=== PATIENT | male | born 1980 | race Two or more races ===

== ENCOUNTER 2018-12-13 06:38 | Emergency (ER) | payer BC ==
[~2018-12-13] VITALS: Ht 162.6 cm; Wt 70.3 kg
[2018-12-13] MEDS ORDERED: FAMOTIDINE 20 MG/2 ML VIAL IVP ONE (06:45)
[2018-12-13] MEDS ORDERED: LIDO:MAALOX 1:1 20 ML SINGLE DOSE. SWSW ONE (06:45)
--- NOTE | 2018-12-13 07:02 | PHYS DOC ---
Past Medical History Past Medical History: No Pertinent History Past Surgical History: No Surgical History Smoking: Cigarettes Alcohol Use: Occasionally Drug Use: None Adult General Chief Complaint Chief Complaint: ABDOMINAL PAIN HPI HPI 38-year-old male presenting the emergency department today with epigastric abdominal pain that has been present for approximately one year. Sharp shooting pain in the epigastrium that is worse when he eats. It started again this morning around 2 AM. It is nonradiating and not associated with vomiting fevers or chills. He denies yellowing of the skin or eyes. He denies chest pain or shortness of breath. Review of systems is negative for fevers chills nausea vomiting chest pain shortness of breath. All other review of systems is negative unless otherwise noted in history of present illness. ED course: 30-year-old male presenting the emergency department today with epigastric abdominal pain. On arrival is afebrile with a normal heart rate. On examination he has mild tenderness in the right upper quadrant. [id number] ultrasound performed which shows cholelithiasis. Gallbladder wall is within normal limits. I was unable to evaluate the common bile duct. On arrival the patient was given IV fluids a GI cocktail and Pepcid. formal Ultrasound shows gallstones without signs of cholecystitis. Blood work is unremarkable otherwise. Repeat abdominal exam continues to show a nontender appendix. He has mild pain in the gallbladder to palpation. We will discharge the patient today with oral pain medication to follow-up with Dr. Ayala for symptomatically cholelithiasis. The blue phone was used both on the initial examination and on reexamination with careful return precautions for developing cholecystitis such as fever or yellowing of the skin. The patient has been examined and was not found to have an emergency medical condition. The patient was then discharged home in stable condition. They were to return if their symptoms worsened or if they were concerned for any reason. They were also instructed to return to the emergency department if they were unable to get the recommended and appropriate follow-up. [id number] discharge instructions and return precautions were given. Patient's questions were answered to their satisfaction. Patient is comfortable with plan. Review of Systems Review of Systems SEE ABOVE. Current Medications Current Medications Current Medications Medications (Trade) Dose Ordered Sig/Daya Start Time Stop Time Status Last Admin Dose Admin Famotidine (Pepcid Vial) 20 mg 1X ONCE 12/13/18 06:45 12/13/18 06:55 DC 12/13/18 07:08 20 MG Multi-Ingredient Mouthwash/Gargle (Gi Cocktail) 20 ml 1X ONCE 12/13/18 06:45 12/13/18 06:55 DC 12/13/18 07:07 20 ML Sodium Chloride 1,000 ml @ 1,000 mls/hr 1X ONCE 12/13/18 07:15 12/13/18 08:14 DC 12/13/18 07:14 1,000 MLS/HR Allergies Allergies Allergies Coded Allergies Type Severity Reaction Last Updated Verified No Known Drug Allergies 12/13/18 No Physical Exam Physical Exam SEE ABOVE Constitutional: Well developed, well nourished, no acute distress, non-toxic appearance. [] HENT: Normocephalic, atraumatic, bilateral external ears normal, oropharynx moist, no oral exudates, nose normal. Eyes: PERRLA, EOMI, conjunctiva normal, no discharge. Neck: Normal range of motion, no tenderness, supple, no stridor. [] Cardiovascular:Heart rate regular rhythm, no murmur Lungs & Thorax: Bilateral breath sounds clear to auscultation [] Abdomen: Bowel sounds normal, soft, no tenderness, no masses, no pulsatile masses. [] Skin: Warm, dry, no erythema, no rash. [] Back: No tenderness, no CVA tenderness. [] Extremities: mild ttp in the ruq. nontender appendix. no cyanosis, no clubbing, ROM intact, no edema. Neurologic: Alert and oriented X 3, normal motor function, normal sensory function, no focal deficits noted. [] Psychologic: Affect normal, judgement normal, mood normal. Current Patient Data Vital Signs Vital Signs Date Time Temp Pulse Resp B/P (MAP) Pulse Ox O2 Delivery O2 Flow Rate FiO2 12/13/18 06:38 98.3 78 16 135/85 (102) 99 Room Air 98.3 Lab Values Laboratory Tests Test 12/13/18 06:55 White Blood Count 8.5 x10^3/uL (4.0-11.0) Red Blood Count 5.23 x10^6/uL (4.30-5.70) Hemoglobin 15.3 g/dL (13.0-17.5) Hematocrit 45.5 % (39.0-53.0) Mean Corpuscular Volume 87 fL (79-100) Mean Corpuscular Hemoglobin 29 pg (25-35) Mean Corpuscular Hemoglobin Concent 34 g/dL (31-37) Red Cell Distribution Width 12.3 % (11.5-14.5) Platelet Count 171 x10^3/uL (140-400) Neutrophils (%) (Auto) 75 % (31-73) H Lymphocytes (%) (Auto) 17 % (24-48) L Monocytes (%) (Auto) 5 % (0-9) Eosinophils (%) (Auto) 3 % (0-3) Basophils (%) (Auto) 1 % (0-3) Neutrophils # (Auto) 6.4 x10^3uL (1.8-7.7) Lymphocytes # (Auto) 1.5 x10^3/uL (1.0-4.8) Monocytes # (Auto) 0.4 x10^3/uL (0.0-1.1) Eosinophils # (Auto) 0.3 x10^3/uL (0.0-0.7) Basophils # (Auto) 0.0 x10^3/uL (0.0-0.2) Sodium Level 140 mmol/L (136-145) Potassium Level 4.2 mmol/L (3.5-5.1) Chloride Level 103 mmol/L (98-107) Carbon Dioxide Level 29 mmol/L (21-32) Anion Gap 8 (6-14) Blood Urea Nitrogen 17 mg/dL (8-26) Creatinine 0.8 mg/dL (0.7-1.3) Estimated GFR (Cockcroft-Gault) 108.2 Glucose Level 115 mg/dL (70-99) H Calcium Level 9.2 mg/dL (8.5-10.1) Total Bilirubin 0.6 mg/dL (0.2-1.0) Direct Bilirubin 0.1 mg/dL (0.0-0.2) Aspartate Amino Transferase (AST) 20 U/L (15-37) Alanine Aminotransferase (ALT) 24 U/L (16-63) Alkaline Phosphatase 82 U/L (46-116) Troponin I Quantitative < 0.017 ng/mL (0.000-0.055) Total Protein 7.3 g/dL (6.4-8.2) Albumin 3.9 g/dL (3.4-5.0) Lipase 174 U/L (73-393) Laboratory Tests 12/13/18 06:55 Laboratory Tests 12/13/18 06:55 EKG EKG EKG obtained and reviewed by myself in real time shows sinus rhythm with a regular rate. ST segments congruent. Not suggestive of ACS. Radiology/Procedures Radiology/Procedures [] Course & Med Decision Making Course & Med Decision Making Pertinent Labs and Imaging studies reviewed. (See chart for details) [] Dragon Disclaimer Dragon Disclaimer This electronic medical record was generated, in whole or in part, using a voice recognition dictation system. Departure Departure Impression: Primary Impression: Epigastric abdominal pain Additional Impression: Symptomatic cholelithiasis Disposition: HOME, SELF-CARE Condition: STABLE Referrals: BIN AYALA MD Patient Instructions: Cholelithiasis Additional Instructions: Thank you for allowing us to participate in your care today. Return to the emergency department you have any new or worsening symptoms, or if you are concerned for any reason. Return to emergency department if you have any new or concerning symptoms including but not limited to fever, chills, nausea, vomiting, intractable pain, any new rashes, chest pain, shortness of air , uncontrolled bleeding, difficulty breathing, and/or vision loss. Follow up with your Dr. Ayala our surgeon for surgical evaluation in 1 week. Call your Primary Doctor tomorrow and inform them of your visit today. If you do not have a primary care provider we are happy to provide you with a list of our primary care providers contact information. This condition should be evaluated by your primary care physician and any recommended consulting services for continued management within 7 days after discharge. If at any time, you are having difficulty getting into your primary care doctor or a specialist, return to the emergency department. Scripts Hydrocodone Bit/Acetaminophen (HYDROCODONE-APAP 5-325 ) 1 Tab Tablet 1 TAB PO PRN Q8HRS PRN for sev, #8 TAB 0 Refills Prov: RADHA CHICAS MD 12/13/18 Problem Qualifiers RADHA CHICAS MD Dec 13, 2018 07:02
[2018-12-13 07:03] LABS: BASO % 1 % (0-3); EOS # 0.3 x10^3/uL (0.0-0.7); EOS % 3 % (0-3); HEMATOCRIT 45.5 % (39.0-53.0); HEMOGLOBIN 15.3 g/dL (13.0-17.5); LYMPH # 1.5 x10^3/uL (1.0-4.8); LYMPH % 17 % (24-48); MEAN CORPUSCULAR HEMOGLOBIN 29 pg (25-35); MEAN CORPUSCULAR HGB CONC 34 g/dL (31-37); MEAN CORPUSCULAR VOLUME 87 fL (79-100); MONO # 0.4 x10^3/uL (0.0-1.1); MONO % 5 % (0-9); NEUT # 6.4 x10^3uL (1.8-7.7); NEUT % 75 % (31-73); PLATELET COUNT 171 x10^3/uL (140-400); RED BLOOD COUNT 5.23 x10^6/uL (4.30-5.70); RED CELL DISTRIBUTION WIDTH 12.3 % (11.5-14.5); WHITE BLOOD COUNT 8.5 x10^3/uL (4.0-11.0)
--- NOTE | 2018-12-13 07:12 | EKG ---
[facility] [address] [place] [address] Test Date: 2018-12-13 Test Time: 06:41:55 Pat Name: ALEXANDRA SOTO Department: Room: Gender: M Direct Support Professional Caregiver: : 1980 Requested By: RADHA CHICAS Order Number: [id number] Reading MD: Gautam Chakraborty MD Measurements Intervals [place] Rate: 72 P: 68 ME: 180 QRS: 51 QRSD: 98 T: 39 QT: 378 QTc: 415 Interpretive Statements SINUS RHYTHM Electronically Signed On 12-17-2018 11:59:37 CDT by Gautam Chakraborty MD
[2018-12-13 07:13] LABS: CALCIUM 9.2 mg/dL (8.5-10.1); CREATININE 0.8 mg/dL (0.7-1.3); GFR 108.2; POTASSIUM 4.2 mmol/L (3.5-5.1)
[2018-12-13] MEDS ORDERED: IV NORMAL SALINE 1000ML BAG 1,000 ML IV ONE (07:15)
[2018-12-13 07:16] LABS: ALBUMIN 3.9 g/dL (3.4-5.0); DIRECT BILIRUBIN 0.1 mg/dL (0.0-0.2); TOTAL BILIRUBIN 0.6 mg/dL (0.2-1.0); TOTAL PROTEIN 7.3 g/dL (6.4-8.2)
[2018-12-13 07:45] VITALS: BP 128/76
--- NOTE | 2018-12-13 07:45 | RAD ---
Right upper quadrant abdominal ultrasound, 12/13/2018: HISTORY: Epigastric pain The gallbladder is at the upper limits of normal in size. It contains multiple echogenic foci with posterior acoustic shadowing compatible with gallstones. The gallbladder [place] are not thickened. The patient was reportedly tender to transducer pressure over the gallbladder region. The common hepatic duct is of normal caliber. There is no evidence of a hepatic mass or bile duct dilatation. The visualized portions of the right kidney are unremarkable. The visualized portions of the pancreatic body show no abnormality. Other portions of the pancreas were obscured by overlying bowel. IMPRESSION: Cholelithiasis Electronically signed by: Chandler Parker MD (12/13/2018 7:41 AM) [facility]
[2018-12-13] MEDS ORDERED: HYDR-2761 PO (08:03)
== END 2018-12-13 08:13 | disposition home or self-care (01) ==
LOC: ER 06:38
DX: K80.80 Other cholelithiasis without obstruction (principal); F17.210 Nicotine dependence, cigarettes, uncomplicated
CPT/HCPCS: 36415; 76705; 80048; 80076; 83690; 84484; 85025; 93005; 96374; 99285; J3490; J7030; 96361

== ENCOUNTER 2019-01-03 06:04 | Emergency (ER) | payer BC ==
[~2019-01-03] VITALS: Ht 167.6 cm; Wt 71.7 kg
[~2019-01-03 06:04] MED LIST: HYDR-2761 PO
[2019-01-03 06:37] LABS: BILIRUBIN,URINE NEGATIVE (NEG); CLARITY,URINE CLEAR; COLOR,URINE YELLOW; NITRITE,URINE NEGATIVE (NEG); PROTEIN,URINE NEGATIVE (NEG-TRACE); UROBILINOGEN,URINE 0.2 mg/dL (0.2 mg/dL)
[2019-01-03 06:47] LABS: BACTERIA,URINE 0 /HPF (0-FEW); RBC,URINE 0 /HPF (0-2); WBC,URINE OCC /HPF (0-4)
[2019-01-03 06:50] LABS: BASO % 0 % (0-3); EOS # 0.4 x10^3/uL (0.0-0.7); EOS % 6 % (0-3); HEMATOCRIT 47.2 % (39.0-53.0); HEMOGLOBIN 15.8 g/dL (13.0-17.5); LYMPH # 2.2 x10^3/uL (1.0-4.8); LYMPH % 33 % (24-48); MEAN CORPUSCULAR HEMOGLOBIN 30 pg (25-35); MEAN CORPUSCULAR HGB CONC 34 g/dL (31-37); MEAN CORPUSCULAR VOLUME 88 fL (79-100); MONO # 0.6 x10^3/uL (0.0-1.1); MONO % 9 % (0-9); NEUT # 3.6 x10^3uL (1.8-7.7); NEUT % 52 % (31-73); PLATELET COUNT 165 x10^3/uL (140-400); RED BLOOD COUNT 5.35 x10^6/uL (4.30-5.70); RED CELL DISTRIBUTION WIDTH 12.8 % (11.5-14.5); WHITE BLOOD COUNT 6.9 x10^3/uL (4.0-11.0)
--- NOTE | 2019-01-03 06:53 | PHYS DOC ---
Past Medical History Past Medical History: Gallstones Past Surgical History: No Surgical History Alcohol Use: Occasionally Drug Use: None Adult General Chief Complaint Chief Complaint: ABDOMINAL PAIN HPI HPI 38-year-old male presenting to the emergency department today with right upper quadrant/epigastric abdominal pain for the past 4 or 5 weeks intermittently. He was seen here previously and diagnosed with a gallstone and told to follow up with a surgeon but unable to. It is sharp shooting pain that is nonradiating intermittent and worse with foods. He denies any fevers or chills. He denies yellowing of the eyes. Review of systems is negative for chest pain shortness of breath nausea vomiting fevers or chills. All other review of systems is negative. All other review of systems is negative unless otherwise noted in history of present illness. ED course: 38-year-old gentleman presenting with right upper quadrant and epigastric abdominal pain. Patient is afebrile here in the emergency department with a normal heart rate. Exam below. Ultrasound shows cholelithiasis without cholecystitis. We will refer the patient to surgery for surgical evaluation.The patient has been examined and was not found to have an emergency medical condition. The patient was then discharged home in stable condition to follow up with their primary care physician over the next 1-2 days. They were to return if their symptoms worsened or if they were concerned for any reason. They were also instructed to return to the emergency department if they were unable to get the recommended and appropriate follow-up. [id number] discharge instructions and return precautions were given. Patient's questions were answered to their satisfaction. Patient is comfortable with plan. Review of Systems Review of Systems SEE ABOVE. Current Medications Current Medications Current Medications Medications (Trade) Dose Ordered Sig/Daya Start Time Stop Time Status Last Admin Dose Admin Famotidine (Pepcid Vial) 20 mg 1X ONCE 01/03/19 07:30 01/03/19 07:31 DC 01/03/19 07:24 20 MG Sodium Chloride 1,000 ml @ 1,000 mls/hr 1X ONCE 01/03/19 07:30 01/03/19 08:29 01/03/19 07:24 1,000 MLS/HR Allergies Allergies Allergies Coded Allergies Type Severity Reaction Last Updated Verified No Known Drug Allergies 12/13/18 No Physical Exam Physical Exam SEE ABOVE Constitutional: Well developed, well nourished, no acute distress, non-toxic appearance. HENT: Normocephalic, atraumatic, bilateral external ears normal, oropharynx moist, no oral exudates, nose normal. [] Eyes: PERRLA, EOMI, conjunctiva normal, no discharge. Neck: Normal range of motion, no tenderness, supple, no stridor. [] Cardiovascular:Heart rate regular rhythm, no murmur Lungs & Thorax: Bilateral breath sounds clear to auscultation [] Abdomen: Patient has mild tenderness in the right upper quadrant without rebound tenderness or guarding. Positive Franco sign. Negative McBurney's point. Nondistended. Skin: Warm, dry, no erythema, no rash. [] Back: No tenderness, no CVA tenderness. Extremities: No tenderness, no cyanosis, no clubbing, ROM intact, no edema. [] Neurologic: Alert and oriented X 3, normal motor function, normal sensory function, no focal deficits noted. Psychologic: Affect normal, judgement normal, mood normal. Current Patient Data Vital Signs Vital Signs Date Time Temp Pulse Resp B/P (MAP) Pulse Ox O2 Delivery O2 Flow Rate FiO2 01/03/19 06:15 98.7 75 17 139/97 (111) 98 Room Air 98.7 Lab Values Laboratory Tests Test 01/03/19 06:15 01/03/19 06:40 01/03/19 07:24 Urine Collection Type Unknown Urine Color Yellow Urine Clarity Clear Urine pH 7.0 Urine Specific [place] 1.015 Urine Protein Negative mg/dL (NEG-TRACE) Urine Glucose (UA) Negative mg/dL (NEG) Urine Ketones (Stick) Negative mg/dL (NEG) Urine Blood Negative (NEG) Urine Nitrite Negative (NEG) Urine Bilirubin Negative (NEG) Urine Urobilinogen Dipstick 0.2 mg/dL (0.2 mg/dL) Urine Leukocyte Esterase Negative (NEG) Urine RBC 0 /HPF (0-2) Urine WBC Occ /HPF (0-4) Urine Bacteria 0 /HPF (0-FEW) White Blood Count 6.9 x10^3/uL (4.0-11.0) Red Blood Count 5.35 x10^6/uL (4.30-5.70) Hemoglobin 15.8 g/dL (13.0-17.5) Hematocrit 47.2 % (39.0-53.0) Mean Corpuscular Volume 88 fL (79-100) Mean Corpuscular Hemoglobin 30 pg (25-35) Mean Corpuscular Hemoglobin Concent 34 g/dL (31-37) Red Cell Distribution Width 12.8 % (11.5-14.5) Platelet Count 165 x10^3/uL (140-400) Neutrophils (%) (Auto) 52 % (31-73) Lymphocytes (%) (Auto) 33 % (24-48) Monocytes (%) (Auto) 9 % (0-9) Eosinophils (%) (Auto) 6 % (0-3) H Basophils (%) (Auto) 0 % (0-3) Neutrophils # (Auto) 3.6 x10^3uL (1.8-7.7) Lymphocytes # (Auto) 2.2 x10^3/uL (1.0-4.8) Monocytes # (Auto) 0.6 x10^3/uL (0.0-1.1) Eosinophils # (Auto) 0.4 x10^3/uL (0.0-0.7) Basophils # (Auto) 0.0 x10^3/uL (0.0-0.2) Sodium Level 140 mmol/L (136-145) Potassium Level 3.8 mmol/L (3.5-5.1) Chloride Level 103 mmol/L (98-107) Carbon Dioxide Level 29 mmol/L (21-32) Anion Gap 8 (6-14) Blood Urea Nitrogen 16 mg/dL (8-26) Creatinine 0.8 mg/dL (0.7-1.3) Estimated GFR (Cockcroft-Gault) 108.2 Glucose Level 102 mg/dL (70-99) H Calcium Level 9.4 mg/dL (8.5-10.1) Total Bilirubin 0.5 mg/dL (0.2-1.0) Direct Bilirubin 0.2 mg/dL (0.0-0.2) Aspartate Amino Transferase (AST) 17 U/L (15-37) Alanine Aminotransferase (ALT) 20 U/L (16-63) Alkaline Phosphatase 91 U/L (46-116) Total Protein 7.4 g/dL (6.4-8.2) Albumin 3.9 g/dL (3.4-5.0) Lipase 179 U/L (73-393) Laboratory Tests 01/03/19 06:40 Laboratory Tests 01/03/19 07:24 EKG EKG [] Radiology/Procedures Radiology/Procedures [] Course & Med Decision Making Course & Med Decision Making Pertinent Labs and Imaging studies reviewed. (See chart for details) [] Dragon Disclaimer Dragon Disclaimer This electronic medical record was generated, in whole or in part, using a voice recognition dictation system. Departure Departure Impression: Primary Impression: Epigastric abdominal pain Additional Impression: Cholelithiasis Disposition: HOME, SELF-CARE Condition: STABLE Referrals: NO PCP (PCP) Patient Instructions: Cholelithiasis Additional Instructions: Thank you for allowing us to participate in your care today. Return to the emergency department you have any new or worsening symptoms, or if you are concerned for any reason. Return to emergency department if you have any new or concerning symptoms including but not limited to fever, chills, nausea, vomiting, intractable pain, any new rashes, chest pain, shortness of air, uncontrolled bleeding, difficulty breathing, and/or vision loss. Follow up with your primary care physician within 1-2 days. Call your Primary Doctor tomorrow and inform them of your visit today. If you do not have a primary care provider we are happy to provide you with a list of our primary care providers contact information. This condition should be evaluated by your primary care physician and any recommended consulting services for continued management within 2 days after discharge. If at any time, you are having difficulty getting into your primary care doctor or a specialist, return to the emergency department. Scripts Hydrocodone Bit/Acetaminophen (HYDROCODONE-APAP 5-325 ) 1 Tab Tablet 1 TAB PO PRN Q8HRS PRN for SEVERE PAIN, #8 TAB 0 Refills Prov: RADHA CHICAS MD 01/03/19 Problem Qualifiers RADHA CHICAS MD January 03, 2019 06:53
[2019-01-03] MEDS ORDERED: IV NORMAL SALINE 1000ML BAG 1,000 ML IV ONE (07:30)
[2019-01-03] MEDS ORDERED: FAMOTIDINE 20 MG/2 ML VIAL IVP ONE (07:30)
--- NOTE | 2019-01-03 07:57 | RAD ---
Right upper quadrant abdominal ultrasound, 01/03/2019: HISTORY: Right upper quadrant pain The gallbladder is within normal limits in size. It contains a small focus of increased echogenicity with posterior acoustic shadowing compatible with a gallstone. The gallbladder [place] are not thickened. The common hepatic duct is of normal caliber. There is no evidence of a hepatic mass or intrahepatic bile duct dilatation. The visualized portions of the right kidney are unremarkable. The pancreas was poorly defined due to overlying bowel. IMPRESSION: Cholelithiasis Electronically signed by: Chandler Parker MD (01/03/2019 7:54 AM) [facility]
[2019-01-03 08:03] LABS: CALCIUM 9.4 mg/dL (8.5-10.1); CREATININE 0.8 mg/dL (0.7-1.3); GFR 108.2; POTASSIUM 3.8 mmol/L (3.5-5.1)
[2019-01-03 08:09] LABS: ALBUMIN 3.9 g/dL (3.4-5.0); DIRECT BILIRUBIN 0.2 mg/dL (0.0-0.2); TOTAL BILIRUBIN 0.5 mg/dL (0.2-1.0); TOTAL PROTEIN 7.4 g/dL (6.4-8.2)
[2019-01-03] MEDS ORDERED: HYDR-2761 PO (08:27)
[2019-01-03 09:00] VITALS: BP 141/93
== END 2019-01-03 09:32 | disposition home or self-care (01) ==
LOC: ER 06:04
DX: K80.20 Calculus of gallbladder without cholecystitis without obstruction (principal); R10.11 Right upper quadrant pain; R10.13 Epigastric pain
CPT/HCPCS: 36415; 76705; 80048; 80076; 81001; 83690; 85025; 96374; 99285; J3490; J7030

== ENCOUNTER 2019-01-27 06:05 | Day surgery (SDC) | payer BC ==
[~2019-01-27] VITALS: Ht 163.8 cm; Wt 68.0 kg
[~2019-01-27 06:05] MED LIST changes: +BUPIVAC MPF-EPI 0.5%-1:200000 30 ML VIAL. ONE; +IOHEXOL 300 MG/ML 50 ML VIAL. ONE; +SURGICEL HEMOSTAT 4X8 EACH. ONE
[2019-01-27] MEDS ORDERED: IV RINGERS,LACTATED 1000ML 1,000 ML IV SCH (07:00)
[2019-01-27] MEDS ORDERED: LIDOCAINE 1% PF 2 ML VIAL. ID PRN (07:00)
[2019-01-27] MEDS ORDERED: HYDROmorphone 2 MG/ML VIAL IV PRN (07:00)
[2019-01-27] MEDS ORDERED: ONDANSETRON PF 4 MG/2 ML VIAL. IV PRN (07:00)
[2019-01-27] MEDS ORDERED: PROCHLORPERAZINE 10 MG/2 ML VIAL. IV PRN (07:00)
[2019-01-27] MEDS ORDERED: MORPHINE SULFATE 2 MG/ML VIAL. IV PRN (07:00)
[2019-01-27] MEDS ORDERED: fentaNYL PF VIAL 100 MCG/2 ML VIAL IV PRN (07:00)
[2019-01-27] MEDS ORDERED: MIDAZOLAM HCL/PF 2 MG/2 ML VIAL. ONE (07:12)
[2019-01-27] MEDS ORDERED: LIDOCAINE 2% PF 5 ML VIAL. ONE (07:12)
[2019-01-27] MEDS ORDERED: DEXAMETHASONE SOD PHOS 4 MG/ML VIAL ONE ×2 (07:12)
[2019-01-27] MEDS ORDERED: PROPOFOL 20 ML IV ONE (07:12)
[2019-01-27] MEDS ORDERED: ROCURONIUM 50 MG/5 ML VIAL. ONE (07:12)
[2019-01-27] MEDS ORDERED: ONDANSETRON PF 4 MG/2 ML VIAL. ONE (07:12)
[2019-01-27] MEDS ORDERED: fentaNYL PF VIAL 100 MCG/2 ML VIAL ONE ×2 (07:12→09:15)
[2019-01-27] MEDS ORDERED: FAMOTIDINE 20 MG/2 ML VIAL ONE (07:12)
[2019-01-27] MEDS ORDERED: NEOSTIGMINE METHYLSULFATE 5 MG/5 ML SYRINGE. ONE (07:55)
[2019-01-27] MEDS ORDERED: GLYCOPYRROLATE 1 MG/5 ML VIAL. ONE (07:55)
[2019-01-27] MEDS ORDERED: KETOROLAC 30 MG/ML INJ FOR OR. INJ ONE (08:23)
--- NOTE | 2019-01-27 08:40 | PDOC4 ---
Operative Note Operative Note Operative Note: Preoperative Diagnosis: Symptomatic cholelithiasis Postoperative Diagnosis: Same Procedure: Laparoscopic cholecystectomy with intraoperative cholangiogram Surgeons: Ron Funeral Attendant: Carly ISIDRO Anesthesia: Gen. Estimated Blood Loss: 10 mL Specimen: Gallbladder to pathology Drains: None Complications: None Indications: The patient is a 39-year-old male who is been experiencing recurrent upper abdominal pain consistent with biliary colic. Surgical treatment was offered by means of a laparoscopic cholecystectomy. The risks of surgery were discussed which include bleeding, infection, bile duct injury, bile leak, pain, the potential for additional surgeries or procedures. The patient understands and would like to proceed. Description: The patient was taken to the operating room and laid supine on the operating table. General anesthesia was performed. The abdomen was prepped with ChloraPrep and draped in a standard surgical fashion. A small infraumbilical incision was made with a scalpel. The Veress needle was then inserted and a pneumoperitoneum was then created. A 5 mm trocar was then inserted and the laparoscope was introduced. In the upper midabdomen a 5 mm trocar was inserted and in the right upper quadrant two 2.3 mm mini lap graspers were inserted. The gallbladder was retracted cephalad. The cystic duct was dissected free from surrounding tissues. One clip was placed on the duct near the gallbladder junction. An opening was made in the duct and a cholangiocatheter placed within and secured with a clip. Using contrast dye and fluoroscopy an intraoperative cholangiogram was performed that appeared unremarkable. The clip and catheter were then withdrawn. Three clips were placed on the cystic duct and it was divided. The cystic artery was then identified, dissected free, doubly clipped and divided as well. The gallbladder was then mobilized away from the liver with cautery. The umbilical 5 millimeter trocar was exchanged for an 11 millimeter trocar. The gallbladder was then placed in an endoscopic bag and extracted at the umbilical trocar site. The fascia there was closed with an 0 Vicryl suture. All blood and irrigation fluid was suctioned and hemostasis was good. The remaining ports were removed and the pneumoperitoneum was relieved. The skin incisions were injected with half percent Marcaine with epinephrine, and all were closed using 4-0 Monocryl suture. Steri-Strips and dressings were then applied. The patient tolerated the procedure well and was sent to the recovery room in stable condition. At the end of the case all counts were correct. WENDY HUFFMAN MD Jan 27, 2019 08:40
--- NOTE | 2019-01-27 08:42 | DISCH ---
DISCHARGE INSTRUCTIONS Condition on Discharge Condition on Discharge: Stable Activity After Discharge Activity Instructions for Disc: Other, see below (no lifting over 20 lbs X 2 weeks) Diet after Discharge Diet after Discharge: Regular Wound Incision Care Wound/Incision Care: Other, see below (may remove bandaids and shower tomorrow; steristrips fall of on their own) Follow-Up Follow up with: Dr Huffman in 2 weeks in office, call for appt [phone] WENDY HUFFMAN MD Jan 27, 2019 08:42
[2019-01-27] MEDS ORDERED: SEVOFLURANE 31 TO 60 MINUTES. IH ONE (08:52)
--- NOTE | 2019-01-27 08:54 | RAD ---
EXAM: Intraoperative cholangiogram. HISTORY: Cholecystectomy, intraoperative cholangiogram. COMPARISON: None. FINDINGS: 2 fluoroscopic images are obtained intraoperatively during injection of the cystic duct remnant after cholecystectomy. There are no filling defects to suggest retained stones. The common duct is mildly dilated. The pancreaticobiliary junction is relatively long with some reflux into the distal pancreatic duct. Fluoroscopy time 0.8 minutes. IMPRESSION: 1. No evidence of retained stones. 2. Relatively long pancreaticobiliary junction. Correlate for this as a contributor to symptoms. Mild common duct dilatation..
[2019-01-27] MEDS ORDERED: OXYC1TAB15 PO (09:02)
[2019-01-27] MEDS: fentaNYL PF VIAL 100 MCG/2 ML VIAL IV PRN ×2 (09:18→10:00)
[2019-01-27] MEDS ORDERED: oxyCODONE/APAP 5/325 1 TAB TABLET ONE (10:28)
[2019-01-27] MEDS ORDERED: oxyCODONE/APAP 5/325 1 TAB TABLET PO ONE (10:30)
[2019-01-27 10:35] VITALS: BP 119/75
--- NOTE | 2019-01-29 13:08 | PATHOLOGY ---
[facility] Accession Number: [id number] . 01 Material submitted: . gallbladder - GALLBLADDER . 01 Clinical history: . SYMPTOMATIC CHOLELITHIASIS . 02 Diagnosis: Gallbladder "gallbladder cholecystectomy": - Moderate chronic cholecystitis. - Cholelithiasis. (SHA:rasheed; 01/29/2019) QMS/01/29/2019 . 02 Electronically signed: . Martin Worthington MD, Pathologist NPI- [id number] . 01 Gross description: . The specimen is received in formalin, labeled "Nicolas, Ral, gallbladder", is a disrupted, collapsed gallbladder measuring 8.0 cm in length and 2.0 cm in maximum diameter with a glistening, shaggy and jkvxtm-vtr-ddivdo. The cystic duct is impacted by a calculus. The gallbladder lumen contains yellow-green, viscous bile and two dark brown, irregularly surfaced calculi measuring 0.5 x 0.4 x 0.4 cm and 0.6 x 0.5 x 0.5 cm. The mucosa is medina-brown and granular with no cholesterolosis. The wall is 0.1 cm in average thickness. Defence Intelligence Analyst tissue is submitted in A1. ([facility]; 01/27/2019) SHS/SHS . 02 Pathologist provided ICD-10: K80.10 . 02 CPT . 360875 Specimen Comment: A courtesy copy of this report has been sent to Specimen Comment: [phone]. Specimen Comment: Report sent to Performed at: 01 [facility] [address] [facility] [address], [place] [id number] MD Irvin Monte MD Phone: [phone] Performed at: 02 [facility] [address] [place], [place] [id number] MD Dominik Quintanilla MD Phone: [phone]
== END 2019-01-27 11:15 | disposition home or self-care (01) ==
LOC: SURG 06:05
PROVIDERS: ATTEND Surgery
DX: K80.10 Calculus of gallbladder with chronic cholecystitis without obstruction (principal); Z87.891 Personal history of nicotine dependence; Z72.89 Other problems related to lifestyle; Z98.890 Other specified postprocedural states
CPT/HCPCS: 47563; 74300; 88304; A7015; J0696; J1100; J1885; J2001; J2250; J2405; J2704; J2710; J3010; J3490; J7030; J7120; Q9967